=== PATIENT | female | born 1970 | race Caucasian/White ===

== ENCOUNTER → 2016-08-13 | Outpatient (CLI) | payer MEDICARE, OTHER | LOC: HEART CORB 13:39 | DX: R00.2 Palpitations (principal); R06.02 Shortness of breath ==

== ENCOUNTER → 2016-08-27 | Outpatient (CLI) | payer MEDICARE, OTHER | LOC: HEART CORB 08-20 13:00 | DX: R07.9 Chest pain, unspecified (principal); I10 Essential (primary) hypertension | CPT/HCPCS: 93306 ==

== ENCOUNTER → 2020-04-15 | Outpatient (CLI) | payer OTHER ==
[~2020-04-15] MED LIST: IBUPROFEN600 MG PO; OMEPRAZOLE40 MG PO; PERCOCET 5/325 T1 EA PO; ZOFRAN 4 MG TAB4 MG PO; ZOFRAN ODT 4 MG4 MG SL
[2020-04-15 15:12] LABS: BUN/CREATININE RATIO 12 (0-10)
[2020-04-16 08:13] LABS: VITAMIN D, 25-HYDROXY 19.2 ng/mL (30.0-100.0)
== END ==
LOC: LAB 14:20
PROVIDERS: Internal Medicine
DX: D89.89 Other specified disorders involving the immune mechanism, not elsewhere classified (principal); M25.50 Pain in unspecified joint; M35.00 Sjogren syndrome, unspecified; M81.0 Age-related osteoporosis without current pathological fracture; Z79.1 Long term (current) use of non-steroidal anti-inflammatories (NSAID)
CPT/HCPCS: 36415; 80053; 84080; 84100

== ENCOUNTER 2020-10-04 22:16 | Emergency (ER) | payer OTHER ==
[~2020-10-04 22:16] MED LIST changes: -PERCOCET 5/325 T1 EA PO
[2020-10-04] MEDS ORDERED: PERCOCET 5/325 T1 EA PO (23:32)
[2020-10-04] MEDS ORDERED: IBUPROFEN600 MG PO (23:32)
== END 2020-10-05 | disposition home or self-care (01) ==
LOC: ER1 22:16
DX: S73.102A Unspecified sprain of left hip, initial encounter (principal); M06.9 Rheumatoid arthritis, unspecified; F17.210 Nicotine dependence, cigarettes, uncomplicated; W18.42XA Slipping, tripping and stumbling without falling due to stepping into hole or opening, initial encounter; Y92.009 Unspecified place in unspecified non-institutional (private) residence as the place of occurrence of the external cause; Z88.5 Allergy status to narcotic agent; Z88.8 Allergy status to other drugs, medicaments and biological substances
CPT/HCPCS: 73502; 99283

== ENCOUNTER 2020-10-25 12:21 | Emergency (ER) | payer OTHER ==
[~2020-10-25 12:21] MED LIST changes: +PERCOCET 5/325 T1 EA PO
[2020-10-25 14:12] LABS: HEMOGLOBIN 16.1 gm/dl (12.3-15.3); RED BLOOD COUNT 4.83 M/UL (4.00-5.10); WHITE BLOOD COUNT 8.6 K/UL (4.5-11.0)
[2020-10-25 14:32] LABS: BUN/CREATININE RATIO 14 (0-10)
== END 2020-10-25 17:20 | disposition home or self-care (01) ==
LOC: ER1 12:21
PROVIDERS: Physician Assistant
DX: M35.00 Sjogren syndrome, unspecified (principal); Z90.710 Acquired absence of both cervix and uterus; Z90.49 Acquired absence of other specified parts of digestive tract; Z88.5 Allergy status to narcotic agent; Z88.8 Allergy status to other drugs, medicaments and biological substances; F17.200 Nicotine dependence, unspecified, uncomplicated
CPT/HCPCS: 70491; 80053; 85025; 99284; Q9967

== ENCOUNTER → 2020-12-01 | Outpatient (CLI) | payer OTHER ==
[~2020-12-01] VITALS: Ht 175.3 cm; Wt 95.7 kg
[~2020-12-01] MED LIST changes: +CELEBREX100 MG PO; +CYCLOBENZAPRINE10 MG PO
== END ==
LOC: OPSV 11-24 14:00
DX: M81.0 Age-related osteoporosis without current pathological fracture (principal)
CPT/HCPCS: 96360; 96365; J3489; J7030

== ENCOUNTER 2020-12-02 22:34 | Emergency (ER) | payer OTHER ==
[~2020-12-02 22:34] MED LIST changes: -CELEBREX100 MG PO; -CYCLOBENZAPRINE10 MG PO
[2020-12-02] MEDS ORDERED: CELEBREX100 MG PO (23:52)
[2020-12-02] MEDS ORDERED: CYCLOBENZAPRINE10 MG PO (23:52)
== END 2020-12-02 23:55 | disposition home or self-care (01) ==
LOC: ER1 22:34
DX: S39.012A Strain of muscle, fascia and tendon of lower back, initial encounter (principal); K21.9 Gastro-esophageal reflux disease without esophagitis; Z90.710 Acquired absence of both cervix and uterus; Z88.8 Allergy status to other drugs, medicaments and biological substances; F17.210 Nicotine dependence, cigarettes, uncomplicated; W19.XXXA Unspecified fall, initial encounter
CPT/HCPCS: 72131; 99283

== ENCOUNTER 2021-01-03 11:44 | Emergency (ER) | payer OTHER ==
[~2021-01-03 11:44] MED LIST changes: +CELEBREX100 MG PO; +CYCLOBENZAPRINE10 MG PO
[2021-01-03 14:30] LABS: HEMOGLOBIN 16.6 gm/dl (12.3-15.3); RED BLOOD COUNT 5.03 M/UL (4.00-5.10); WHITE BLOOD COUNT 8.5 K/UL (4.5-11.0)
[2021-01-03 14:52] LABS: BUN/CREATININE RATIO 9 (0-10)
== END 2021-01-03 17:15 | disposition short-term general hospital (02) ==
LOC: ER1 11:44
PROVIDERS: Emergency Medicine
DX: G83.9 Paralytic syndrome, unspecified (principal); R20.2 Paresthesia of skin; F17.200 Nicotine dependence, unspecified, uncomplicated
CPT/HCPCS: 72128; 72131; 80053; 81001; 85025; 85652; 86140; 99284

== ENCOUNTER 2021-04-28 16:29 | Emergency (ER) | payer OTHER | END 2021-04-28 19:02 | disposition left against medical advice (07) | LOC: ER1 16:29 | DX: R05.9 Cough, unspecified (principal); R09.89 Other specified symptoms and signs involving the circulatory and respiratory systems; H57.89 Other specified disorders of eye and adnexa; F17.200 Nicotine dependence, unspecified, uncomplicated | CPT/HCPCS: 99283 ==

== ENCOUNTER → 2021-11-15 | Outpatient (CLI) | payer MEDICARE, OTHER | LOC: EMI 10-13 16:45 | DX: G35 Multiple sclerosis (principal) | CPT/HCPCS: 70551 ==